=== PATIENT | male | born 1975 | race Caucasian/White ===

== ENCOUNTER 2020-06-26 23:35 | Emergency (ER) | payer SELFPAY ==
[~2020-06-26] VITALS: Ht 180.3 cm; Wt 103.4 kg
[2020-06-26 23:47] VITALS: BP 132/84
--- NOTE | 2020-06-26 23:52 | NUR ---
PT AMBULATED TO BED 08.
--- NOTE | 2020-06-27 00:04 | NUR ---
ERMD AT BEDSIDE EVALUATING PT
--- NOTE | 2020-06-27 00:05 | NUR ---
44 Y/O MALE BIB SELF FOR C/O R PINKY TOE PAIN X 1HOUR AGO S/P "STUBBING IT AT HOME." SWELLING AND REDNESS NOTED. CAP REFIL <3. CMS INTACT. PT STATES 01/11 SHARP PAIN. SKIN WARM AND DRY. MEDHX: SULMA COELHO Addendum: 06/27/20 at 0023 by [email or web address] PT STAETS HE TOOK 3 TABS OF TYLENOL BEFORE COMING IN, WITH SOME RELIEF
[2020-06-27] MEDS ORDERED: IBUPROFEN 800 MG TAB PO ONE (00:20)
--- NOTE | 2020-06-27 00:36 | NUR ---
XRAY AT BEDSIDE.
--- NOTE | 2020-06-27 00:43 | NUR ---
PT REFUSED MEDICATION AT THIS TIME.
--- NOTE | 2020-06-27 00:54 | NUR ---
PAOLA TAPE PT'S RIGHT FOURTH AND FIFTH DIDGET ON PT'S RIGHT FOOT, CHECKED PMSC'S BEFORE AND AFTER APPLICATION OF PAOLA TAPE WTIHOUT INCIDENT.
--- NOTE | 2020-06-27 01:09 | NUR ---
PLACED ICE PACK ON PT'S RIGHT FOOT DIRECTLY OVER THE FOURTH AND FIFTH DIDGET. AFTER PLACMENT OF ICE PACK PROVIDED PT WITH ORTHO IMMOBILIZER SHOE.
[2020-06-27 01:38] VITALS: BP 132/84
--- NOTE | 2020-06-27 01:38 | NUR ---
Patient discharged with v/s stable. Written and verbal after care instructions given and explained. Patient alert, oriented and verbalized understanding of instructions. Ambulatory with steady gait. All questions addressed prior to discharge. ID band removed. Patient advised to follow up with PMD. Rx of NORCO AND IBUPROFEN given. Patient educated on indication of medication including possible reaction and side effects. Opportunity to ask questions provided and answered.
== END 2020-06-27 01:38 | disposition home or self-care (01) ==
LOC: MED 23:35
DX: S92.351A Displaced fracture of fifth metatarsal bone, right foot, initial encounter for closed fracture (principal); W51.XXXA Accidental striking against or bumped into by another person, initial encounter; Y93.89 Activity, other specified; Y92.89 Other specified places as the place of occurrence of the external cause; Y99.8 Other external cause status
CPT/HCPCS: 73660; 99283; Q0092